=== PATIENT | female | born 1995 | race Caucasian/White ===

== ENCOUNTER 2017-05-03 20:49 | Emergency (ER) | payer SELFPAY ==
[~2017-05-03] VITALS: Ht 154.9 cm; Wt 74.6 kg
[~2017-05-03 20:49] MED LIST: Z.0.NO CURRENT MEDS
[2017-05-03 21:05] VITALS: BP 137/71; PULSE 105; RESP 18; TEMP 99.5; O2SAT 98
--- NOTE | 2017-05-03 21:55 | PD ---
HPI Chief Complaint: Skin Problem Time Seen by Provider: 21:43 Travel History International Travel<30 days: No Contact w/Intl Traveler<30days: No Traveled to known affect area: No History of Present Illness HPI 22-year-old female complains of painful lump on the sacrum coccyx area. Patient states the symptoms started 5 days ago and got worse since then. Patient denies any injury to the area. Patient denies any fever chills. Patient denies any chance of being . On a scale of 1-10 the pain is a 10. PFSH Past Medical History Medical History: Denies Significant Hx Diminished Hearing: No Immunizations Current: Yes Tetanus Vaccination: > 5 Years Influenza Vaccination: No ?: Not LMP: 04/25/17 : 0 Past Surgical History Surgical History: No Previous Surgery Social History Alcohol Use: No Tobacco Use: No Substance Use: No Allergies-Medications (Allergen,Severity, Reaction): Coded Allergies: No Known Allergies (Unverified , 05/03/17) Reported Meds & Prescriptions Reported Meds & Active Scripts Active [place] (Hydrocodone-Acetaminophen) 5-325 mg Tab 1 Tab PO Q6H PRN Flagyl (Metronidazole) 500 Mg Tab 500 Mg PO TID Cipro (Ciprofloxacin HCl) 500 Mg Tab 500 Mg PO BID Review of Systems General / Constitutional: No: Fever Eyes: No: Visual changes HENT: No: Headaches Cardiovascular: No: Chest Pain or Discomfort Respiratory: No: Shortness of Breath Gastrointestinal: No: Abdominal Pain Genitourinary: No: Dysuria Musculoskeletal: No: Pain Skin: No Rash Neurologic: No: Weakness Psychiatric: No: Depression Endocrine: No: Polydipsia Hematologic/Lymphatic: No: Easy Bruising Physical Exam Narrative GENERAL: Well-nourished, well-developed patient. SKIN: Focused skin assessment warm/dry. HEAD: Normocephalic. EYES: No scleral icterus. No injection or drainage. NECK: Supple, trachea midline. No JVD or lymphadenopathy. CARDIOVASCULAR: Regular rate and rhythm without murmurs, gallops, or rubs. RESPIRATORY: Breath sounds equal bilaterally. No accessory muscle use. GASTROINTESTINAL: Abdomen soft, non-tender, nondistended. MUSCULOSKELETAL: No cyanosis, or edema. BACK: Nontender without obvious deformity. No CVA tenderness. Patient has an area redness swelling induration around the sacrum coccyx area. No discharge noted. No drainage. Data Data Last Documented VS Vital Signs Date Time Temp Pulse Resp B/P Pulse Ox O2 Delivery O2 Flow Rate FiO2 05/03/17 21:15 16 05/03/17 21:05 99.5 105 137/71 98 Orders Lidocai-Epi 1%-1:100,000 Inj (Xylocaine- (05/03/17 22:00) Wound Culture And Gram Stain (05/03/17 22:16) MDM Medical Decision Making Medical Screen Exam Complete: Yes Emergency Medical Condition: Yes Differential Diagnosis Differential diagnosis including pilonidal cyst, cellulitis, abscess. Narrative Course 22-year-old female with redness swelling tenderness sacrococcyx area. Diagnosis Primary Impression: Infected pilonidal cyst Patient Instructions: General Instructions Additional Instructions: Take medications as directed. Return in 2 days for recheck. Med/Other Pt SpecificInfo: Prescription(s) given Scripts Hydrocodone-Acetaminophen ([place])5-325 mg Tab1 Tab PO Q6H PRN (PAIN) #20 TAB Ref 0 Prov:Cristofer Martino MD 05/03/17 Metronidazole (Flagyl)500 Mg [id number] Mg PO TID #30 TAB Ref 0 Prov:Cristofer Martino MD 05/03/17 Ciprofloxacin (Cipro)500 Mg [id number] Mg PO BID #20 TAB Prov:Cristofer Martino MD 05/03/17 Disposition: 01 DISCHARGE HOME Condition: Stable Cristofer Martino MD May 03, 2017 21:55
[2017-05-03] MEDS ORDERED: LIDOCAINE 1%/EPINEPHrine 1:100,000 SOLN 20 ML VIAL INFIL ONE (22:00)
[2017-05-03] MEDS ORDERED: CIPR-9 PO (22:01)
[2017-05-03] MEDS ORDERED: METR-1 PO (22:01)
[2017-05-03] MEDS ORDERED: NORC5TAB PO (22:01)
--- NOTE | 2017-05-03 22:23 | PD ---
Physical Exam Time Seen by Provider: 22:05 Narrative I was asked by Dr. Martino to perform an incision and drainage on this patient, see his note for further details. Data Data Last Documented VS Vital Signs Date Time Temp Pulse Resp B/P Pulse Ox O2 Delivery O2 Flow Rate FiO2 05/03/17 21:15 16 05/03/17 21:05 99.5 105 137/71 98 Orders Lidocai-Epi 1%-1:100,000 Inj (Xylocaine- (05/03/17 22:00) Wound Culture And Gram Stain (05/03/17 22:16) [facility] Medical Record Reviewed: Yes Supervised Visit with REE: Yes Procedures Procedure Narrative INCISION AND DRAINAGE OF ABSCESS: The area was prepped and was sterilely draped. A subcutaneous wheal of 1% lidocaine with epinephrine with a total number 3 mL was used to anesthetize the area properly. A number 11 scalpel was used to make a 1 cm incision across the area of the abscess. The abscess was drained, complex loculations were broken down. Cultures were obtained. Quarter inch iodoform packing was placed in the wound. Sterile dressing applied. Patient advised to have packing removed in two days. Diagnosis Primary Impression: Infected pilonidal cyst Patient Instructions: General Instructions Additional Instruction: Take medications as directed. Return in 2 days for recheck. Scripts Hydrocodone-Acetaminophen ([place])5-325 mg Tab1 Tab PO Q6H PRN (PAIN) #20 TAB Ref 0 Prov:Cristofer Martino MD 05/03/17 Metronidazole (Flagyl)500 Mg [id number] Mg PO TID #30 TAB Ref 0 Prov:Cristofer Martino MD 05/03/17 Ciprofloxacin (Cipro)500 Mg [id number] Mg PO BID #20 TAB Prov:Cristofer Martino MD 05/03/17 Disposition: DISCHARGE HOME Condition: Stable Mercedez Batista May 03, 2017 22:23
[2017-05-03 22:25] VITALS: BP 131/79; PULSE 94; RESP 18; O2SAT 96
== END 2017-05-03 22:43 | disposition home or self-care (01) ==
LOC: PHED 20:49
DX: L05.01 Pilonidal cyst with abscess (principal); B96.89 Other specified bacterial agents as the cause of diseases classified elsewhere
CPT/HCPCS: 10080; 87070; 87185; 87205; 99284